=== PATIENT | male | born 2005 | race Caucasian/White ===

== ENCOUNTER 2023-10-19 19:39 | Emergency (ER) | payer SELFPAY ==
[2023-10-19 19:40] VITALS: BP 128/73; PULSE 60; RESP 50; TEMP -17.7; TEMP 0; O2SAT 100
--- NOTE | 2023-10-19 19:49 | ED.RN ---
VERBAL ORDER GIVEN BY BRAN WALDRON FOR 20 MG OF ETOMIDATE AND 100 MG OF SUCCINYLCHOLINE FOR 20MG OF ETOMIDATE GIVEN AT 1942 BY G[facility]FIELD. 100 MG SUCCUNYLCHOLINE GIVEN AT 1943 BY GARFIELD.
--- NOTE | 2023-10-19 19:50 | RAD_ITS ---
INDICATION: Trauma, ET tube placement EXAMINATION/TECHNIQUE: X-RAY - portable supine AP chest x-ray COMPARISON: None. FINDINGS: LINES/DEVICES: Endotracheal tube tip 6 cm above the mayra. Enteric tube passes below the diaphragm, tip not seen. LUNGS: No consolidation, edema or effusion. No pneumothorax. MEDIASTINUM AND CARDIOVASCULAR STRUCTURES: Cardiac silhouette not enlarged. Central airways and mediastinal contour are unremarkable. BONES AND SOFT TISSUES: Unremarkable. RAD/Chest 1 View (Portable) IMPRESSION: No radiographic evidence of acute cardiopulmonary disease. Electronically Signed: Michael Maddox MD at 20:19 EDT ,
--- NOTE | 2023-10-19 19:51 | ED.RN ---
[facility] arrives to ED with [facility] with this patient. After discussing care with Dr Nickerson they decided to intubate patient and [facility] to leave immediately with patient to [facility].
[2023-10-19 19:56] VITALS: BP 113/100; PULSE 55; RESP 30; RESP 32; TEMP -17.7; TEMP 0; O2SAT 100; BMI 24.4
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
== END 2023-10-19 20:01 | disposition short-term general hospital (02) ==
PROVIDERS: Emergency Provider Emergency Medicine; Visit Provider Emergency Medicine
DX: S00.81XA Abrasion of other part of head, initial encounter (principal); S20.319A Abrasion of unspecified front wall of thorax, initial encounter; S30.811A Abrasion of abdominal wall, initial encounter; V48.6XXA Car passenger injured in noncollision transport accident in traffic accident, initial encounter; R40.4 Transient alteration of awareness
CPT/HCPCS: 31500; 71045; 99252; 99284; A4216; G0463